=== PATIENT | female | born 2005 | race Caucasian/White ===

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

== ENCOUNTER → 2024-05-01 | Outpatient (CLI) | payer BC, OTHER ==
[~2024-05-01] MED LIST changes: -DEXAMETHASONE SOD PHOSPHATE 4 MG/ML 1 ML VIAL IV ONE; -LACTATED RINGERS 1,000 ML IV SCH; -MORPHINE SULFATE 2 MG/ML SYRINGE IV PRN; -ONDANSETRON 4 MG/2 ML VIAL IVP ONE; +ONDANSETRON 4 MG/2 ML VIAL ONE; -Pre Op ABX Message 1 EACH MISC MISCELLANE ONE
== END ==
LOC: FBPOP 12:00
PROVIDERS: ATTEND Obstetrics & Gynecology
CPT/HCPCS: 96361; 96374; 99214

== ENCOUNTER 2024-05-29 12:08 | Outpatient (CLI) | payer BC, OTHER ==
[2024-05-29] MEDS: LACTATED RINGERS 1,000 ML IV ONE (12:55)
[2024-05-29] MEDS: ONDANSETRON 4 MG/2 ML VIAL IVP STA (13:22)
[2024-05-29] MEDS: FAMOTIDINE 20 MG/2 ML VIAL IV STA (13:24)
[2024-05-29] MEDS: LACTATED RINGERS 1,000 ML IV SCH (13:26)
[2024-05-29 13:27] LABS: Appearance,Urine Cloudy (Clear); Bacteria,Urine Rare /hpf; Bilirubin,Urine Negative (Negative); Blood,Urine Negative (Negative); Color,Urine Yellow; Glucose,Urine (UA) Negative (Negative); Ketones,Urine 4+ (Negative); Leukocyte Esterase,Urine Moderate (Negative); Mucus,Urine Rare /hpf; Nitrite,Urine Negative (Negative); PH, Urine 5.5 (5.0-8.0); Protein,Urine 1+ (Negative); RBC,Urine 2 /hpf (0-5); Specific Gravity,Urine 1.026 (1.001-1.035); Squamous Epithelial Cell,Urine 12 /hpf (0-4); WBC,Urine 7 /hpf (0-5)
[2024-05-29] MEDS: METOCLOPRAMIDE 5 MG/ML 2 ML VIAL IVP STA (14:52)
[2024-05-29 15:50] VITALS: BP 94/46; PULSE 83; RESP 16; TEMP 96.6
--- NOTE | 2024-06-02 20:51 | P.MSEPDOC ---
Presenting Problems - Arrival Data Date of Arrival on Unit: 05/29/24 Time of Arrival on Unit: 12:08 Mode of Transport: Ambulatory - Complaint OB-Reason for Admission/Chief Complaint: Acute Nausea/Vomiting Medical History - Information : 3 Para: 2 Number of Living Children: 1 - Gestational Age Gestational Age by DIANA (wks/days): 76 Weeks and 1 Days Review of Systems - Review of Systems Constitutional: No problems Breast: No problems ENT: No problems Cardiovascular: No problems Respiratory: No problems Gastrointestinal: No problems Genitourinary: No problems Musculoskeletal: No problems Neurological: No problems Skin: No problems Vital Signs - Temperature Temperature: 96.6 F Temperature Source: Temporal Artery Scan - Pulse Right Sitting Brachial Pulse Rate: 83 Pulse Assessment Method: Automatic Cuff - Respirations Respiratory Rate: 16 Oxygen Delivery Method: Room Air O2 Sat by Pulse Oximetry: 99 - Blood Pressure Right Arm Sitting Blood Pressure: 94/46 Blood Pressure Mean: 62 Blood Pressure Source: Automatic Cuff Physician Notification - Physician Notified Physician Notified Date: 05/29/24 Physician Notified Time: 12:30 Physician: Xochilt Mcadams Order Received: Yes (meds, IV fluids) Maternal Triage Index - Maternal Triage Index Presenting for scheduled procedure w/no complaint: No - Stat/Priority 1 Stat Priority 1: No - Urgent/Priority 2 Urgent Priority 2: No - Prompt/Priority 3 Prompt Priority 3: No - Non-Urgent/Priority 4 Non-Urgent Priority 4: Yes Criteria Met for Priority 4: N&V Disposition - Disposition OB Disposition: Triage Discharge Date: 05/29/24 Discharge Time: 15:41 I agree with the RN Medical Screening Exam: Yes Physician's MSE Comment: I have neither seen nor examined the patient except the gestational age is incorrect at 76 weeks Case reviewed; plan agreed upon as documented in EMR&OBIX.: Yes Diagnosis: LATE VOMITING OF
== END 2024-05-29 15:41 | disposition home or self-care (01) ==
LOC: FBPOP 12:08
PROVIDERS: ATTEND Obstetrics & Gynecology
CPT/HCPCS: 81001; 96361; 96374; 96375; 99214

== ENCOUNTER 2024-07-25 12:36 | Outpatient (CLI) | payer BC, OTHER ==
[2024-07-25 13:20] LABS: Appearance,Urine Cloudy (Clear); Bacteria,Urine Rare /hpf; Bilirubin,Urine Negative (Negative); Blood,Urine Negative (Negative); Color,Urine Yellow; Glucose,Urine (UA) Negative (Negative); Ketones,Urine 4+ (Negative); Leukocyte Esterase,Urine Small (Negative); Mucus,Urine Rare /hpf; Nitrite,Urine Negative (Negative); PH, Urine 5.5 (5.0-8.0); Protein,Urine 1+ (Negative); RBC,Urine 3 /hpf (0-5); Specific Gravity,Urine 1.025 (1.001-1.035); Squamous Epithelial Cell,Urine 10 /hpf (0-4); WBC,Urine 8 /hpf (0-5)
[2024-07-25] MEDS: LACTATED RINGERS 1,000 ML IV ONE (13:20)
[2024-07-25] MEDS: ONDANSETRON 4 MG/2 ML VIAL IVP STA (13:24)
[2024-07-25] MEDS: FAMOTIDINE 20 MG/2 ML VIAL IV STA (13:34)
[2024-07-25] MEDS: ACETAMINOPHEN IV (For NPO) 1,000 MG in EMPTY BAG 1 BAG IVPB STA (13:35)
[2024-07-25] MEDS: ONDANSETRON 4 MG/2 ML VIAL IM STA (13:44)
[2024-07-25] MEDS: LACTATED RINGERS 1,000 ML IV SCH (14:14)
[2024-07-25] MEDS: METOCLOPRAMIDE 5 MG/ML 2 ML VIAL IVP STA (15:07)
[2024-07-25 15:27] VITALS: BP 129/62; PULSE 86; RESP 18; TEMP 96.1
--- NOTE | 2024-07-26 06:34 | P.MSEPDOC ---
Presenting Problems - Arrival Data Date of Arrival on Unit: 07/25/24 Time of Arrival on Unit: 12:36 Mode of Transport: Ambulatory - Complaint OB-Reason for Admission/Chief Complaint: Acute Nausea/Vomiting Comment: Pt arrives to triage c/o nausea and vomitting x 3 days; pt states this has occured several times during the . Denies diarrhea. States epigastric pain that started today. Medical History - Information : 3 Para: 2 Term: 2 Number of Living Children: 1 - Gestational Age Gestational Age by DIANA (wks/days): 32 Weeks and 0 Days Review of Systems - Review of Systems Constitutional: No problems Breast: No problems ENT: No problems Cardiovascular: No problems Respiratory: No problems Gastrointestinal: Pain Genitourinary: No problems Musculoskeletal: No problems Neurological: No problems Skin: No problems Vital Signs - Temperature Temperature: 96.1 F Temperature Source: Temporal Artery Scan - Pulse Right Sitting Brachial Pulse Rate: 86 Pulse Assessment Method: Automatic Cuff - Respirations Respiratory Rate: 18 Oxygen Delivery Method: Room Air O2 Sat by Pulse Oximetry: 98 - Blood Pressure Right Arm Sitting Blood Pressure: 129/62 Blood Pressure Mean: 84 Blood Pressure Source: Automatic Cuff Medical Screen Scoring - Assessment - Baby A Baseline FHR: 115 Heart Rate - NICHD Category: Category I (Normal) NST: Reactive Physician Notification - Physician Notified Physician Notified Date: 07/25/24 Physician Notified Time: 12:59 Physician: Evan Bateman New Order Received: Yes - Notification Comment Comment: Spk c/Dr. Bateman, advsd of pts arrival to triage, , 32 0/7, c/o nausea/vomitting x 3 days, epigastric "cramping" that started today, no hx of pre-e c/previous pregnancies. Order recd for UA, LR and zofran. 1330-Dr. Bateman advsd of pts UA result, 4+ketones, order rec'd to infuse 3L LR, additional medicaiton orders rec'd for pts heartburn and discomfort. Pt may be discharged after fluids are infused and pt feels improvement in symptoms. Maternal Triage Index - Maternal Triage Index Presenting for scheduled procedure w/no complaint: No - Stat/Priority 1 Stat Priority 1: No - Urgent/Priority 2 Urgent Priority 2: No - Prompt/Priority 3 Prompt Priority 3: No - Non-Urgent/Priority 4 Non-Urgent Priority 4: Yes Criteria Met for Priority 4: Acute NV Disposition - Disposition OB Disposition: Discharge to home, Written follow up instructions reviewed Discharge Date: 07/25/24 Discharge Time: 15:20 I agree with the RN Medical Screening Exam: Yes Physician's MSE Comment: I have neither seen nor examined the patient. Case reviewed; plan agreed upon as documented in EMR&OBIX.: Yes Diagnosis: RELATED CONDITIONS, UNSPECIFIED, THIRD TRIMESTER
== END 2024-07-25 15:20 | disposition home or self-care (01) ==
LOC: FBPOP 12:36
PROVIDERS: ATTEND Obstetrics & Gynecology
DX: O26.893 Other specified pregnancy related conditions, third trimester (principal); R11.2 Nausea with vomiting, unspecified; R10.13 Epigastric pain; Z3A.32 32 weeks gestation of pregnancy
CPT/HCPCS: 59025; 99214; 96361; 96365; 96375; 81001; J2765; J2405; J3490; J0131

== ENCOUNTER 2024-08-25 09:45 | Outpatient (CLI) | payer BC, OTHER ==
[2024-08-25] MEDS: LACTATED RINGERS 1,000 ML IV ONE ×2 (10:26→11:27)
[2024-08-25] MEDS: METOCLOPRAMIDE 5 MG/ML 2 ML VIAL IVP STA (10:31)
[2024-08-25] MEDS: FAMOTIDINE 20 MG/2 ML VIAL IV STA (10:32)
[2024-08-25] MEDS: ONDANSETRON 4 MG/2 ML VIAL IVP STA (11:27)
--- NOTE | 2024-08-25 11:51 | US ---
EXAMINATION TYPE: US OB BPP wo non-stress DATE OF EXAM: 08/25/2024 COMPARISON: NONE CLINICAL INDICATION: Female, 19 years old with history of non reactive nst; HTN non reactive nst TECHNIQUE: Transabdominal (TA). Scoring by the supervisor dry cell assembly during real-time assessment. FINDINGS: BPP PARAMETERS: PRESENTATION: Vertex LIE: Longitudinal?? HEART RATE: 155 bpm RHYTHM: Normal HÉCTOR: 10.4 DIAPHRAGM IMAGED: yes BPP SCORIN. Breathin (1 episode of breathing of 30 second duration in 30 minutes of scanning time) 2. Movement: 2 (at least 3 discrete body movements in 30 minutes) 3. Tone: 2 (1 episode of active flexion/extension of limb) 4. HÉCTOR: 2 (HÉCTOR index > 5cm) MANAGER PLANT NOTES: IMPRESSION: TOTAL SCORE: 8 / 8 [facility], , 08/25/2024 11:49 AM
[2024-08-25 13:33] VITALS: BP 126/76; PULSE 68; RESP 17; TEMP 96.8
--- NOTE | 2024-09-04 23:18 | P.MSEPDOC ---
Presenting Problems - Arrival Data Date of Arrival on Unit: 08/25/24 Time of Arrival on Unit: 09:45 Mode of Transport: Ambulatory - Complaint OB-Reason for Admission/Chief Complaint: Hyperemesis Comment: pt presents to triage for nausea and vomiting for the last 2 days, Medical History - Information : 3 Para: 2 Term: 2 : 0 Abortions: Spontaneous or Elective: 0 Number of Living Children: 1 - Gestational Age Gestational Age by DIANA (wks/days): 36 Weeks and 3 Days Review of Systems - Review of Systems Constitutional: No problems Breast: No problems ENT: No problems Cardiovascular: No problems Respiratory: No problems Gastrointestinal: No problems Genitourinary: No problems Musculoskeletal: No problems Neurological: No problems Skin: No problems Vital Signs - Temperature Temperature: 96.8 F Temperature Source: Temporal Artery Scan - Pulse Right Brachial Pulse Rate: 68 Pulse Assessment Method: Automatic Cuff - Respirations Respiratory Rate: 17 Oxygen Delivery Method: Room Air O2 Sat by Pulse Oximetry: 97 - Blood Pressure Right Arm Blood Pressure: 126/76 Blood Pressure Mean: 92 Medical Screen Scoring - Assessment - Baby A Baseline FHR: 120 Heart Rate - NICHD Category: Category I (Normal) NST: Reactive Physician Notification - Physician Notified Physician Notified Date: 08/25/24 Physician Notified Time: 10:13 Physician: Xochilt Mcadams Order Received: Yes - Notification Comment Comment: pt received 2 liters of ivf, reglan, pepcid, and zofran ivp, bpp 8/8, pt discharged home, pt has appt next week in office Maternal Triage Index - Maternal Triage Index Presenting for scheduled procedure w/no complaint: No - Stat/Priority 1 Stat Priority 1: No - Urgent/Priority 2 Urgent Priority 2: No - Prompt/Priority 3 Prompt Priority 3: No - Non-Urgent/Priority 4 Non-Urgent Priority 4: Yes Criteria Met for Priority 4: pt presents to triage for nausea and vomiting for the last 2 days, Disposition - Disposition OB Disposition: Triage, Discharge to home, Written follow up instructions reviewed Discharge Date: 08/25/24 Discharge Time: 13:22 I agree with the RN Medical Screening Exam: Yes Physician's MSE Comment: I have neither seen nor examined this patient Case reviewed; plan agreed upon as documented in EMR&OBIX.: Yes Diagnosis: LATE VOMITING OF
== END 2024-08-25 13:24 | disposition home or self-care (01) ==
LOC: FBPOP 09:45
PROVIDERS: ATTEND Obstetrics & Gynecology
DX: O21.1 Hyperemesis gravidarum with metabolic disturbance (principal); Z3A.36 36 weeks gestation of pregnancy
CPT/HCPCS: 59025; 99214; 96361; 96374; 96375; 76819; J2765; J2405; J3490

== ENCOUNTER → 2024-08-25 | Outpatient (CLI) | payer BC, OTHER | END | disposition home or self-care (01) | LOC: RADUSWWP 09:00 | PROVIDERS: ATTEND Obstetrics & Gynecology | DX: Z53.9 Procedure and treatment not carried out, unspecified reason (principal) ==

== ENCOUNTER → 2024-09-03 | Outpatient (CLI) | payer BC, OTHER ==
--- NOTE | 2024-09-04 18:26 | US ---
EXAMINATION TYPE: US OB BPP wo non-stress DATE OF EXAM: 09/03/2024 COMPARISON: NONE CLINICAL INDICATION: Female, 19 years old with history of I10 Essential hypertension; TECHNIQUE: Transabdominal (TA). Scoring by the reliability technologist during real-time assessment. FINDINGS: BPP PARAMETERS: PRESENTATION: Vertex LIE: Longitudinal?? HEART RATE: 125 bpm RHYTHM: Normal HÉCTOR: 12.1 DIAPHRAGM IMAGED: yes BPP SCORIN. Breathin (1 episode of breathing of 30 second duration in 30 minutes of scanning time) 2. Movement: 0 (at least 3 discrete body movements in 30 minutes) 3. Tone: 2 (1 episode of active flexion/extension of limb) 4. HÉCTOR: 2 (HÉCTOR index > 5cm) YOUTH ASSOCIATE NOTES: only 2 movements, results communicated to at office IMPRESSION: TOTAL SCORE: 6 / 8 [facility], , 09/04/2024 6:24 PM
== END | disposition home or self-care (01) ==
LOC: RADUSWWP 15:23
PROVIDERS: ATTEND Obstetrics & Gynecology
DX: O36.8190 Decreased fetal movements, unspecified trimester, not applicable or unspecified (principal); O13.9 Gestational [pregnancy-induced] hypertension without significant proteinuria, unspecified trimester; Z3A.00 Weeks of gestation of pregnancy not specified
CPT/HCPCS: 76819

== ENCOUNTER → 2024-09-04 | Outpatient (CLI) | payer BC, OTHER ==
--- NOTE | 2024-09-04 15:35 | US ---
EXAMINATION TYPE: US OB BPP wo non-stress DATE OF EXAM: 09/04/2024 COMPARISON: 09/03/2024 CLINICAL INDICATION: Female, 19 years old with history of I10 CHRONIC HYPERTENSION; Failed BPP Yester day TECHNIQUE: Transabdominal (TA). Scoring by the cigarette maker during real-time assessment. FINDINGS: BPP PARAMETERS: PRESENTATION: Vertex LIE: Longitudinal?? HEART RATE: 125 bpm RHYTHM: Normal HÉCTOR: 5.7 DIAPHRAGM IMAGED: BPP SCORIN. Breathin (1 episode of breathing of 30 second duration in 30 minutes of scanning time) 2. Movement: 2 (at least 3 discrete body movements in 30 minutes) 3. Tone: 2 (1 episode of active flexion/extension of limb) 4. HÉCTOR: 2 (HÉCTOR index > 5cm) TRANSPORTATION ESCORT NOTES: movements were small but seen IMPRESSION: TOTAL SCORE: 8 / 8 [facility], , 09/04/2024 3:33 PM
== END | disposition home or self-care (01) ==
LOC: RADUSWWP 13:51
PROVIDERS: ATTEND Obstetrics & Gynecology
DX: Z36.9 Encounter for antenatal screening, unspecified (principal); I10 Essential (primary) hypertension
CPT/HCPCS: 76819

== ENCOUNTER 2024-09-17 12:17 | Inpatient (IN) | payer BC, OTHER ==
[2024-09-17] MEDS ORDERED: CARBOPROST TROMETHAMINE 250 MCG/ML 1 ML AMP IM PRN (12:48)
[2024-09-17] MEDS ORDERED: TERBUTALINE 1 MG/ML VIAL SQ PRN (12:48)
[2024-09-17] MEDS ORDERED: LIDOCAINE 0.5% (PF) 5 MG/ML (50 ML SDV) SQ PRN (12:48)
[2024-09-17] MEDS ORDERED: OXYTOCIN 10 UNIT/ML 1 ML VIAL IM PRN (12:48)
[2024-09-17] MEDS ORDERED: METHYLERGONOVINE 0.2 MG/ML 1 ML AMP IM PRN (12:48)
[2024-09-17] MEDS ORDERED: TRANEXAMIC 1,000 MG/100ML-NACL 1,000 MG in EMPTY BAG 1 BAG IV PRN (12:48)
[2024-09-17] MEDS ORDERED: miSOPROStoL 200 MCG TAB RECTAL PRN (12:48)
[2024-09-17] MEDS ORDERED: miSOPROStoL 200 MCG TAB PO PRN (12:48)
[2024-09-17 12:55] LABS: Amorphous Sediment,Urine Rare /hpf; Appearance,Urine Cloudy (Clear); Bilirubin,Urine Negative (Negative); Blood,Urine Negative (Negative); Color,Urine Yellow; Glucose,Urine (UA) Negative (Negative); Ketones,Urine Negative (Negative); Leukocyte Esterase,Urine Small (Negative); Mucus,Urine Rare /hpf; Nitrite,Urine Negative (Negative); Protein,Urine Negative (Negative); RBC,Urine <1 /hpf (0-5); Specific Gravity,Urine 1.015 (1.001-1.035); Squamous Epithelial Cell,Urine 9 /hpf (0-4); Urobilinogen,Urine <2.0 mg/dL (<2.0); WBC,Urine 1 /hpf (0-5)
[2024-09-17] MEDS ORDERED: LACTATED RINGERS 1,000 ML IV SCH (13:00)
[2024-09-17 13:09] LABS: Basophils % (A) 0 %; Creatinine,Urine Random 105.5 mg/dL; Eosinophils # (A) 0.1 k/uL (0-0.7); Eosinophils % (A) 1 %; HCT 41.4 % (34.0-46.0); HGB 14.3 gm/dL (11.4-16.0); Lymphocytes # (A) 1.5 k/uL (1.0-4.8); Lymphocytes % (A) 13 %; MCH 32.8 pg (25.0-35.0); MCHC 34.5 g/dL (31.0-37.0); MCV 95.1 fL (80.0-100.0); Mean Platelet Volume 7.9; Monocytes # (A) 0.4 k/uL (0-1.0); Monocytes % (A) 4 %; Neutrophils # (A) 9.4 k/uL (1.3-7.7); Neutrophils % (A) 82 %; Platelet Count 224 k/uL (150-450); Protein/Creatinine Ratio,Urine 0.095; RBC 4.35 m/uL (3.80-5.40); RDW 14.5 % (11.5-15.5); WBC 11.5 k/uL (4.0-11.0)
[2024-09-17 13:14] LABS: ALT 16 U/L (4-34); AST 19 U/L (14-36); African American GFR (CKD) >90 (>60 ml/min/1.73 sqM); Blood Urea Nitrogen 5 mg/dL (7-17); LDH 186 U/L (120-246); Non-African American GFR(CKD) >90 (>60 ml/min/1.73 sqM); Uric Acid 3.7 mg/dL (3.7-7.4)
--- NOTE | 2024-09-17 13:21 | P.HPOB ---
History of Present Illness H&P Date: 09/17/24 Chief Complaint: Medical induction of labor Ms. Razo is a 19 year old at 39 weeks and 5 days by 9 week US who presents for medical induction of labor for chronic hypertension. The patient has had mostly normotensive blood pressures throughout the aside from severe-range blood pressures at her first OB visit. Today, blood pressures were 130s/90s in the office. She also complains of feeling unwell and nauseous. She denies headache, visual changes, or RUQ pain. The decision was made to proceed with medical induction. The has also been complicated by Class 3 Obesity, for which she has been followed with surveillance and growth US. Today, the fetus is measuring 7 pounds and 8 ounces. Obstetric history: 2 FTVD, 1st infant from SIDS at 1 month old. Largest baby 8 pounds and 15 ounces. work-up: blood type A negative, antibody negative (s/p rhogam at 28 weeks), rubella immune, VDRL non-reactive, HBsAg negative, HIV negative, HCV Ab non-reactive, gonorrhea negative, chlamydia negatiev, 1 hour GTT wnl, GBS nega tive. Past Medical History Past Medical History: GERD/Reflux Additional Past Medical History / Comment(s): hyperemesis gravidium History of Any Multi-Drug Resistant Organisms: None Reported Past Surgical History: Adenoidectomy, Tonsillectomy Past Anesthesia/Blood Transfusion Reactions: No Reported Reaction Smoking Status: Never smoker - Past Family History Mother Family Medical History: No Reported History Medications and Allergies Home Medications Medication Instructions Recorded Confirmed Type 27-1 Mg Plus Low Iron 1 tab PO DAILY 02/19/22 09/17/24 History Aspirin [Children's Aspirin] 81 mg PO DAILY 02/20/22 09/17/24 History Omeprazole 20 mg PO DAILY 05/29/24 09/17/24 History Ondansetron [Zofran] 4 mg PO DAILY 05/29/24 09/17/24 History Allergies Allergy/AdvReac Type Severity Reaction Status Date / Time No Known Allergies Allergy Verified 09/17/24 12:34 Exam Intake and Output 09/16/24 09/17/24 09/17/24 22:59 06:59 14:59 Other: Weight 143.789 kg Focused physical exam is performed. This is a healthy-appearing in no apparent distress. Breathing is non-labored. Abdomen is gravid and non-tender. Cervical exam is 1/50/-3. Extremities non-tender and non-edematous. heart tones are reactive on NST. Results Result Diagrams: 09/17/24 12:33 09/17/24 12:54 Abnormal Lab Results - Last 24 Hours (Table) 09/17/24 09/17/24 09/17/24 Range/Units 12:33 12:33 12:54 WBC 11.5 H (4.0-11.0) k/uL Neutrophils # 9.4 H (1.3-7.7) k/uL BUN 5 L (7-17) mg/dL Creatinine 0.45 L (0.52-1.04) mg/dL Urine Appearance Cloudy H (Clear) Ur Leukocyte Esterase Small H (Negative) Ur Squamous Epith Cells 9 H (0-4) /hpf Amorphous Sediment Rare H (None) /hpf Urine Mucus Rare H (None) /hpf Assessment and Plan Assessment: 19 year old at 39 weeks and 5 days being medically induced for cHTN Plan: Admit, clear liquid diet, monitor BPs closely, PIH labs pending, pitocin per protocol, plan for AROM, continuous EFM and tocometer, anticipate vaginal delivery.
[2024-09-17] MEDS: LACTATED RINGERS 500 ML IV SCH (14:00)
[2024-09-17] MEDS: OXYTOCIN 30 UNITS/500 ML NS 30 UNIT in SALINE 1 500ML.BAG IV SCH (14:42)
[2024-09-17] MEDS ORDERED: SODIUM CHLORIDE 0.9% 250 ML BAG ONE (22:32)
[2024-09-17] MEDS ORDERED: fentaNYL (PF) 50 MCG/ML 5 ML AMP ONE (22:32)
[2024-09-17] MEDS ORDERED: ROPIVACAINE 5 MG/ML 30 ML VIAL ONE (22:32)
[2024-09-18] MEDS ORDERED: LANOLIN CREAM 1 GM TUBE TOPICAL PRN (03:24)
[2024-09-18] MEDS ORDERED: SIMETHICONE 80 MG CHEWABLE PO PRN (03:24)
[2024-09-18] MEDS ORDERED: diphenhydrAMINE 50 MG/ML 1 ML VIAL IVP PRN (03:24)
[2024-09-18] MEDS ORDERED: diphenhydrAMINE 50 MG CAP PO PRN (03:24)
[2024-09-18] MEDS ORDERED: ZOLPIDEM 5 MG TAB PO PRN (03:24)
[2024-09-18] MEDS ORDERED: BENZOCAINE/MENTHOL SPRAY 1 GM/SPRAY AEROSOL TOPICAL PRN (03:24)
[2024-09-18] MEDS ORDERED: diphenhydrAMINE 25 MG CAP PO PRN (03:24)
[2024-09-18] MEDS ORDERED: HYDROCORTISONE 2.5% RECTAL CREAM 30 GM TUBE RECTAL PRN (03:24)
--- NOTE | 2024-09-18 03:24 | P.PROBDLV ---
Vaginal Delivery Note - . Vaginal Delivery Note: DATE OF SERVICE: 09/18/2024 PROCEDURE: Normal Vaginal Delivery ATTENDING: Dr. Xochilt Mcadams MD ESTIMATED BLOOD LOSS: 100 mL FINDINGS: VMI, Apgars 9/9. Weight 7 pounds and 7 ounces (3380 grams) PROCEDURE: Ms. Razo is a 19 year old at 39 weeks and 5 days presenting to labor and delivery for medical induction of labor for chronic hypertension. The has been complicated by chronic hypertension and class 3 obesity. For further details, please review the admitting H&P. Pitocin was titrated per protocol. AROM was undertaken at 1639. She received epidural anesthesia per her request. The patient was completely dilated at 300. She pushed effectively with Category II heart tones. A viable male was delivered at 305 over an intact perineum. The was placed on the maternal abdomen and bulb suctioned. The was noted to be spontaneously crying. Cord was clamped and cut after a 60-second delay. The was handed off to the pediatric team. Placenta was delivered whole with gentle cord traction at 309. Oxytocin was s tarted to facilitate uterine tone. Uterine fundus was found to be firm and below the umbilicus upon fundal massage. Thorough examination of the cervix, vagina, periurethral area, and perineum revealed no lacerations. The patient is stable and allowed to begin the bonding process.
[2024-09-18] MEDS: diphenhydrAMINE 50 MG/ML 1 ML VIAL IVP PRN (03:46)
[2024-09-18] MEDS: IBUPROFEN 800 MG TAB PO SCH (04:18)
[2024-09-18] MEDS: Rhogam IMMUNE GLOBULIN 1,500 UNIT/1 ML IM ONE (06:49)
[2024-09-18] MEDS: SENNOSIDES-DOCUSATE SODIUM 1 EACH TAB PO SCH (08:08)
[2024-09-18] MEDS: ACETAMINOPHEN TAB 500 MG TAB PO SCH (14:42)
[2024-09-18 23:14] VITALS: RESP 18
[2024-09-19 08:10] LABS: Basophils # (A) 0.1 k/uL (0-0.2); Basophils % (A) 1 %; Eosinophils # (A) 0.2 k/uL (0-0.7); Eosinophils % (A) 2 %; HCT 36.1 % (34.0-46.0); HGB 12.2 gm/dL (11.4-16.0); Lymphocytes # (A) 2.6 k/uL (1.0-4.8); Lymphocytes % (A) 25 %; MCH 32.6 pg (25.0-35.0); MCHC 33.7 g/dL (31.0-37.0); MCV 96.7 fL (80.0-100.0); Mean Platelet Volume 7.5; Monocytes # (A) 0.5 k/uL (0-1.0); Monocytes % (A) 5 %; Neutrophils # (A) 6.6 k/uL (1.3-7.7); Neutrophils % (A) 66 %; Platelet Count 211 k/uL (150-450); RBC 3.74 m/uL (3.80-5.40); RDW 13.9 % (11.5-15.5); WBC 10.1 k/uL (4.0-11.0)
[2024-09-19 09:35] VITALS: BP 118/76; PULSE 77; TEMP 97.4
--- NOTE | 2024-09-19 09:40 | P.DS ---
Providers Date of admission: 09/17/24 12:17 Expected date of discharge: 09/19/24 Attending physician: Xochilt Mcadams MD Primary care physician: Stated None Hospital Course: 19 year old now PPD#1 s/p after medical induction of labor for chronic hypertension. The patient is doing well this morning and had no acute events overnight. She has no complaints this morning. She reports minimal lochia, passing flatus, voiding without difficulty, ambulating, and eating/drinking without nausea or vomiting. Infant doing well at bedside, s/p circumcision. She denies chest pain, shortness of breathing, fevers, or chills overnight. She denies pain or swelling in the legs. restrictions are reviewed with the patient including pelvic rest for 6 weeks. The patient is encouraged to call the office if she experiences any heavy bleeding, foul- smelling discharge, breast complaints, or any if she has any other concerns. She will follow up in the office with in 1 week for blood pressure check. She has a blood pressure cuff at home and will check blood pressures daily, she is counseled on normal parameters and when to call office or go to triage. All questions are answered. Assessment: 19 year old now PPD#1 s/p Patient Condition at Discharge: Good Plan - Discharge Summary Discharge Rx Participant: No New Discharge Prescriptions: New Ibuprofen [Motrin] 600 mg PO Q6HR PRN #30 tab PRN Reason: Mild Pain (Scale 1 To 3) Ibuprofen [Motrin] 600 mg PO Q6HR PRN #30 tab PRN Reason: Mild Pain (Scale 1 To 3) No Action 27-1 Mg Plus Low Iron 1 tab PO DAILY Omeprazole 20 mg PO DAILY Aspirin [Children's Aspirin] 81 mg PO DAILY Ondansetron [Zofran] 4 mg PO DAILY Discharge Medication List 27-1 Mg Plus Low Iron 1 tab PO DAILY 02/19/22 [History] Aspirin [Children's Aspirin] 81 mg PO DAILY 02/20/22 [History] Omeprazole 20 mg PO DAILY 05/29/24 [History] Ondansetron [Zofran] 4 mg PO DAILY 05/29/24 [History] Ibuprofen [Motrin] 600 mg PO Q6HR PRN #30 tab 09/19/24 [Rx] Ibuprofen [Motrin] 600 mg PO Q6HR PRN #30 tab 09/19/24 [Rx] Follow up Appointment(s)/Referral(s): Xochilt Mcadams MD [STAFF PHYSICIAN] - 1 Week Activity/Diet/Wound Care/Special Instructions: Instructions 1. Do not begin any exercise program for 3 weeks. 2. Do not resume sexual relations for 6 weeks or longer if uncomfortable. 3. You may take tub baths or showers at any time. 4. You may use tampons if desired after 6 weeks. 5. Keep any areas repaired with stitches clean and dry. 6. If you are not nursing, wear a good fitting, supportive bra during the day and limit fluid intake for at least 1 week to prevent breast engorgement. 7. Call the office, , within the next week to make appointment for your 6 week checkup if it has not already been made. 8. Report any of the following occurrences to the doctor promptly: a. Heavy, excessive bleeding b. Chills, fever c. Burning or frequency of urination d. Pain or redness and breasts if nursing e. Increasing pain or swelling of vulva (stitches). In addition to the above instructions, the following additional should be followed: 1. No heavy lifting or straining (exercising) until after 6 week checkup. 2. Keep abdominal incision clean and dry: You may wear a dressing if more comfortable. 3. Make office appointment for 2 weeks after delivery date. Discharge Disposition: HOME SELF-CARE
== END 2024-09-19 12:45 | disposition home or self-care (01) | DRG 807 ==
LOC: 4FBP 12:17
PROVIDERS: ADMIT Obstetrics & Gynecology; ATTEND Obstetrics & Gynecology
PROC: 10E0XZZ Delivery of Products of Conception, External Approach (ICD-10-PCS; principal; 2024-09-18)
PROC: 4A1HXCZ Monitoring of Products of Conception, Cardiac Rate, External Approach (ICD-10-PCS; 2024-09-18)
PROC: 3E033VJ Introduction of Other Hormone into Peripheral Vein, Percutaneous Approach (ICD-10-PCS; 2024-09-18)
PROC: 10907ZC Drainage of Amniotic Fluid, Therapeutic from Products of Conception, Via Natural or Artificial Opening (ICD-10-PCS; 2024-09-18)
PROC: 3E0234Z Introduction of Serum, Toxoid and Vaccine into Muscle, Percutaneous Approach (ICD-10-PCS; 2024-09-18)
DX: O16.4 Unspecified maternal hypertension, complicating childbirth (principal); Z37.0 Single live birth; E66.813 Obesity, class 3; O99.214 Obesity complicating childbirth; Z3A.39 39 weeks gestation of pregnancy; Z79.82 Long term (current) use of aspirin; O26.893 Other specified pregnancy related conditions, third trimester; Z67.41 Type O blood, Rh negative; K21.9 Gastro-esophageal reflux disease without esophagitis; O99.62 Diseases of the digestive system complicating childbirth
CPT/HCPCS: 81001; 82565; 82570; 83615; 84156; 84450; 84460; 84520; 84550; 85025; 85461; 86850; 86900; 86901